=== PATIENT | female | born 1975 | race Caucasian/White ===

== ENCOUNTER 2024-07-13 11:44 | Emergency (ER) | payer OTHER ==
[~2024-07-13] VITALS: Ht 160 cm; Wt 78.5 kg
[2024-07-13 11:45] VITALS: BP_SYST 127; PULSE 89; RESP 18; TEMP 96.8; O2SAT 98
[2024-07-13 12:52] LABS: BASOPHILS # (AUTO) 0.1 K/uL (0.0-0.2); BASOPHILS % (AUTO) 0.5 % (0.0-2.0); EOSINOPHILS # (AUTO) 0.1 K/uL (0.0-0.4); HEMATOCRIT 39.8 % (36-48); HEMOGLOBIN 13.7 g/dL (12.0-16.0); LYMPHOCYTES # (AUTO) 1.6 K/uL (1.0-5.5); LYMPHOCYTES % (AUTO) 15.1 % (20.5-51.5); MEAN CORPUSCULAR HEMOGLOBIN 31 pg (27-31); MEAN CORPUSCULAR HGB CONC 35 % (32-36); MEAN CORPUSCULAR VOLUME 89 fL (79.0-98.0); MONOCYTES # (AUTO) 0.6 K/uL (0.0-1.0); MONOCYTES % (AUTO) 5.9 % (1.7-9.3); NEUTROPHILS # (AUTO) 8.3 K/uL (1.8-7.7); NEUTROPHILS % (AUTO) 77.5 % (40.0-70.0); PLATELET COUNT (AUTO) 382 K/uL (130-430); RED BLOOD CELL COUNT(AUTO) 4.47 MIL/uL (4.2-6.2); RED CELL DISTRIBUTION WIDTH 12.3 % (9.0-15.0); WHITE BLOOD COUNT (AUTO) 10.7 K/uL (4.8-10.8)
[2024-07-13 13:18] LABS: ANION GAP 11 (5-15); CALCIUM 9.4 mg/dL (8.4-11.0); CARBON DIOXIDE 30 mmol/L (23-29); CHLORIDE 98 mmol/L (98-107); CREATININE 0.79 mg/dL (0.55-1.30); GFR AFRICAN AMERICAN 99 mL/min (>90); GLUCOSE 95 mg/dL (74-106); POTASSIUM 3.5 mmol/L (3.5-5.1); SODIUM SERUM 139 mmol/L (136-145); UREA NITROGEN, BLOOD 12 mg/dL (8-21)
[2024-07-13 13:20] LABS: GFR NON AFRICAN-AMERICAN 82 mL/min (>90)
[2024-07-13] MEDS ORDERED: VIS25 PO (14:00)
[2024-07-13 14:26] VITALS: BP_SYST 127; PULSE 89; RESP 18; TEMP 96.8; O2SAT 98
== END 2024-07-13 14:27 | disposition home or self-care (01) ==
LOC: SED 11:44
DX: R07.89 Other chest pain (principal); F41.9 Anxiety disorder, unspecified; F43.0 Acute stress reaction; I48.91 Unspecified atrial fibrillation; Z90.49 Acquired absence of other specified parts of digestive tract; Z98.84 Bariatric surgery status
CPT/HCPCS: 36415; 71045; 80048; 83880; 84484; 85025; 93005; 99285